=== PATIENT | male | born 1995 | race Two or more races ===

== ENCOUNTER 2024-09-24 11:03 | Emergency (ER) | payer OTHER ==
[~2024-09-24] VITALS: Ht 182.9 cm; Wt 79.4 kg
[2024-09-24] MEDS ORDERED: ORPHENADRINE CITRATE 30 MG/ML AMPUL IM STA (11:36)
[2024-09-24] MEDS ORDERED: KETOROLAC TROMETHAMINE 60 MG VIAL IM ONE ×2 (11:45→11:58)
[2024-09-24] MEDS ORDERED: ORPHENADRINE CITRATE 30 MG/ML AMPUL ONE (11:58)
== END 2024-09-24 13:35 | disposition home or self-care (01) ==
LOC: ER 11:03
DX: M54.2 Cervicalgia (principal); M62.830 Muscle spasm of back

== ENCOUNTER 2024-10-15 17:08 | Emergency (ER) | payer OTHER ==
[~2024-10-15] VITALS: Ht 182.9 cm; Wt 80.3 kg
[2024-10-15] MEDS ORDERED: KETOROLAC TROMETHAMINE 60 MG VIAL IM ONE (18:22)
[2024-10-15] MEDS ORDERED: KETOROLAC TROMETHAMINE 30 MG VIAL IM STA (18:22)
== END 2024-10-15 18:33 | disposition home or self-care (01) ==
LOC: ER 17:17
DX: M54.2 Cervicalgia (principal); R20.2 Paresthesia of skin

== ENCOUNTER → 2025-05-22 | Emergency (ER) | payer OTHER ==
[~2025-05-22] VITALS: Ht 182.9 cm; Wt 86.2 kg
[~2025-05-22] MED LIST: ACETAMINOPHEN 500 MG GEL..CAP PO ONE; AZITHROMYCIN500 MG PO; CETIRIZINE HCL 5 MG/5 ML ML PO STA; DEXAMETHASONE SODIUM PHOSPHATE 4 MG/ML VIAL IM STA; GUAIFENESIN 200 MG/10 ML BLIST.PACK PO ONE; LORATADINE 10 MG TABLET PO ONE
[2025-05-22 10:29] LABS: BASO % 0.8 % (0.1-1.2); EOS # 0.44 (0.04-0.54); EOS % 5.9 % (0.7-7.0); LYMPH # 1.09 (1.18-3.74); LYMPH % 14.5 % (19.3-53.1); MEAN PLATELET VOLUME 8.90 fl (9.4-12.4); MONO # 0.28 (0.24-0.82); MONO % 3.7 % (4.7-12.5); NEUT # 5.62 (1.56-6.13); NEUT % 74.8 % (34.0-71.1); RED CELL DISTRIBUTION WIDTH 12.2 % (11.6-14.4)
== END | disposition home or self-care (01) ==
LOC: ER 07:24
PROVIDERS: General Practice
DX: J98.8 Other specified respiratory disorders (principal); Z87.09 Personal history of other diseases of the respiratory system